=== PATIENT | female | born 1995 | race Caucasian/White ===

== ENCOUNTER 2021-03-11 22:14 | Emergency (ER) | payer OTHER, SELFPAY ==
[2021-03-11 22:31] VITALS: BP 111/70; PULSE 125; RESP 18; TEMP 36.5; O2SAT 100
[2021-03-11 23:00] LABS: Basophils Absolute Auto 0.1 K/mm3 (0.0-0.1); Basophils Percent Auto 0.8 % (0.2-1.2); Eosinophils Absolute Auto 0.3 K/mm3 (0-0.3); Eosinophils Percent Auto 3.1 % (0-4.4); Hematocrit 40.5 % (37.0-47.0); Hemoglobin 13.3 g/dL (12.0-15.0); Immature Granulocyte Absolute 0.02 K/mm3 (0.00-0.031); Immature Granulocyte Percent A 0.2 % (0-0.5); Lymphocytes Absolute Auto 3.74 K/mm3 (0.9-3.2); Lymphocytes Percent Auto 37.3 % (18.3-44.2); Mean Corpuscular HGB Conc 32.8 g/dl (32-36); Mean Corpuscular Hemoglobin 30.3 pg (26-34); Mean Corpuscular Volume 92.3 fl (80-100); Mean Platelet Volume 10.1 fl (7.4-10.4); Monocytes Absolute Auto 0.8 K/mm3 (0.1-0.6); Monocytes Percent Auto 8.4 % (2.6-8.5); Neutrophils Absolute Auto 5.1 K/mm3 (1.3-6.7); Neutrophils Percent Auto 50.2 % (45.5-73.1); Platelet Count Result 295 k/mm3 (150-375); Red Blood Count 4.39 M/mm3 (4.2-5.4); Red Cell Distribution Width 13.2 % (11.5-14.5)
[2021-03-11 23:09] LABS: Alanine Aminotransferase 25 U/L (4-35); Albumin Level 4.4 g/dL (3.5-5.1); Alkaline Phosphatase 69 U/L (38-126); Anion Gap 8 mmol/L (8-16); Aspartate Amino Transferase 31 U/L (14-36); Bilirubin,Total 0.1 mg/dL (0.2-1.3); Blood Urea Nitrogen 8 mg/dL (7-17); Calcium 9.3 mg/dL (8.4-10.2); Carbon Dioxide 25 mmol/L (22-30); Chloride 107 mmol/L (98-107); Estimated CRCL calculation 102 ml/min; Estimated Glomerular Filt Rate > 60; Glucose 84 mg/dL (65-105); Lipase 54 U/L (23-300); Potassium 3.9 mmol/L (3.4-5.0); Sodium 140 mmol/L (137-145)
[2021-03-12 00:10] VITALS: BP 121/78; PULSE 65; RESP 20; O2SAT 100
[2021-03-12 00:20] LABS: Add Urine Microscopic? YES; Appearance Urine Cloudy (Clear); Bacteria Urine Trace /hpf; Bilirubin Urine Negative (Negative); Blood Urine Negative (Negative); Color Urine Yellow (Yellow); Glucose Urine UA Negative (Negative); Ketones Urine Negative (Negative); Leukocyte Esterase Ur Negative LEU/UL (Negative); Mucus Urine Rare /lpf; Nitrate Urine Negative (Negative); Protein Urine Negative (Negative); RBC Urine 0-2 /hpf (0-2); Specific Grav Ur 1.017 (1.001-1.035); Squamous Epithelial Cell Urine Many /hpf (Few); Urobilinogen Urine Negative mg/dL (<2.0); WBC Urine 0-3 /hpf
--- NOTE | 2021-03-12 00:39 | ED.GENADULT ---
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 She denies any fever or chills. No history of sore throat. Denies any ear infections. She is worried that she could be having major infections. Also complains of dull back pain. Onset (ago): day(s) (2) Location: neck Severity: mild Relieving factors: none Exacerbating factors: none Associated symptoms: denies other symptoms Related Data Home Medications Medication Instructions Recorded Confirmed divalproex 750 mg PO HS 03/11/21 quetiapine 200 mg PO HS 03/11/21 venlafaxine 150 mg PO HS 03/11/21 Allergies Allergy/AdvReac Type Severity Reaction Status Date / Time adhesive tape Allergy Rash Verified 03/12/21 00:11 shellfish derived Allergy Rash Verified 03/12/21 00:11 Review of Systems Review of Systems: All systems reviewed & are unremarkable except as noted in HPI and below Constitutional: Constitutional: Reports no additional constitutional complaints Eyes: Eyes: Reports no additional eye complaints ENT: Reports system reviewed and no additional complaints, except as documented Cardiovascular: Cardiovascular: Reports no additional cardiovascular complaints Respiratory: Respiratory: Reports no additional respiratory complaints Gastrointestinal: Gastrointestinal: Reports no additional gastrointestinal complaints Musculoskeletal: Musculoskeletal: Reports as per [facility] Social History Social History Gender identity (if verbalized by the patient): Female Exam Narrative: Exam Narrative: GENERAL: Well-appearing, well-nourished, and in no acute distress. HEAD: Normocephalic, atraumatic. EYES: PERRLA and EOMI. ENT: Nares clear, no rhinorrhea or epistaxis. Mucous membranes moist. NECK: Supple. Has a single solitary lymph node at the angle of the right jaw. Nontender skin over this lymph node is normal CHEST: Clear to auscultation. No respiratory distress. HEART: Regular rate and rhythm. No murmur heard. Normal peripheral pulses. ABDOMEN: Soft, nontender, nondistended, normal active bowel sounds. EXTREMITIES: Normal range of motion. No edema. SKIN: Warm, dry, no rash. NEURO: No focal deficits. Alert and oriented x3. PSYCH: Normal mood and affect. Course Course Emergency Course: Inform patient about her lab work. Advised her no antibiotic is needed just watch and see at this time take Tylenol ibuprofen for pain. Vital Signs Vital signs: Vital Signs Temperature 36.5 C 03/11/21 22:31 Pulse Rate 125 H 03/11/21 22:31 Respiratory Rate 18 03/11/21 22:31 Blood Pressure 111/70 03/11/21 22:31 Pulse Oximetry 100 03/11/21 22:31 Temperature 36.5 C 03/11/21 22:31 Pulse Rate 65 03/12/21 00:10 Respiratory Rate 20 03/12/21 00:10 Blood Pressure 121/78 03/12/21 00:10 Pulse Oximetry 100 03/12/21 00:10 Medical Decision Making Vital Signs Vital Signs: Vital Signs Temperature 36.5 C 03/11/21 22:31 Pulse Rate 125 H 03/11/21 22:31 Respiratory Rate 18 03/11/21 22:31 Blood Pressure 111/70 03/11/21 22:31 Pulse Oximetry 100 03/11/21 22:31 Temperature 36.5 C 03/11/21 22:31 Pulse Rate 65 03/12/21 00:10 Respiratory Rate 20 03/12/21 00:10 Blood Pressure 121/78 03/12/21 00:10 Pulse Oximetry 100 03/12/21 00:10 Lab Data Result diagrams: 03/11/21 22:53 03/11/21 22:53 Labs: Lab Results 03/11/21 03/11/21 03/11/21 Range/Units 22:53 22:53 23:46 WBC 10.0 (4.5-10.0) K/mm3 RBC 4.39 (4.2-5.4) M/mm3 Hgb 13.3 (12.0-15.0) g/dL Hct 40.5
== END 2021-03-12 00:51 | disposition home or self-care (01) ==
PROVIDERS: Emergency Medicine; Emergency Provider Family Medicine; PCP Obstetrics & Gynecology
DX: R59.0 Localized enlarged lymph nodes (principal)
CPT/HCPCS: 36415; 80053; 81001; 81025; 83690; 85025; 99283

== ENCOUNTER 2021-06-28 18:34 | Emergency (ER) | payer OTHER, SELFPAY ==
--- NOTE | ~2021-06-28 | XR_ITS ---
EXAMINATION: XR ankle LT min 3V DATE: 06/28/2021 18:56 INDICATION: Medial sided left ankle pain post fall TECHNIQUE: Anteroposterior, oblique, mortise, and lateral views of the left ankle were obtained. COMPARISON: None. FINDINGS: Alignment is normal. No fracture. Joint spaces are well maintained. No ankle joint effusion. The so ft tissues are unremarkable. IMPRESSION: 1. Negative left ankle radiographs. Reviewed, dictated and finalized at location A.
[2021-06-28 18:37] VITALS: BP 163/88; PULSE 108; RESP 18; TEMP 36.3; O2SAT 99
[2021-06-28 19:09] VITALS: BP 160/80; PULSE 98; RESP 18; O2SAT 99
--- NOTE | 2021-06-28 20:21 | ED.GENADULT ---
HPI - General Adult General Chief complaint: Extremity Injury, Lower <Staci Arevalo PA-C - Last Filed: 06/28/21 20:46> Stated complaint: left ankle pain <MIRTHA Carrion Last Filed: 06/28/21 20:46> Time Seen by Provider: 06/28/21 18:46 <Staci Arevalo PA-C - Last Filed: 06/28/21 20:46> Source: patient <MIRTHA Carrion Last Filed: 06/28/21 20:46> Mode of arrival: ambulatory <MIRTHA Carrion Last Filed: 06/28/21 20:46> Limitations: no limitations <MIRTHA Carrion Last Filed: 06/28/21 20:46> History of Present Illness HPI narrative: Patient presents with chief complaint of pain to the left ankle with walking and standing over the next month. Patient states this started when she inverted her ankle 28 days ago. Patient states that for 1 week she wore Heath wrap. She states she has sprained the ankle in the past but it is normally resolved within 2 weeks. Patient has tried anything else to alleviate her symptoms. Patient denies any other injuries. <MIRTHA Carrion Last Filed: 06/28/21 20:46> Related Data Home medications: Home Medications Medication Instructions Recorded Confirmed divalproex 750 mg PO HS 03/11/21 quetiapine 200 mg PO HS 03/11/21 venlafaxine 150 mg PO HS 03/11/21 <Staci Arevalo PA-C - Last Filed: 06/28/21 20:46> Allergies/adverse reactions: Allergies Allergy/AdvReac Type Severity Reaction Status Date / Time adhesive tape Allergy Rash Verified 06/28/21 19:08 shellfish derived Allergy Rash Verified 06/28/21 19:08 <MIRTHA Carrion Last Filed: 06/28/21 20:46> Review of Systems Review of Systems: CONSTITUTIONAL: Denies fever, chills, or sweats. EYES: Denies visual changes, redness, or discharge. ENT: Denies rhinorrhea, congestion, sore throat, or otalgia. CARDIOVASCULAR: Denies chest pain, palpitations, or edema. RESPIRATORY: Denies cough or dyspnea. GASTROINTESTINAL: Denies abdominal pain, nausea, vomiting, or diarrhea. GENITOURINARY: Denies dysuria or hematuria. SKIN: Denies rash or itching. MUSCULOSKELETAL: Reports left ankle pain denies back pain or myalgia. NEUROLOGIC: Denies headache, numbness, dizziness, or weakness. PSYCHIATRIC: Denies anxiety or depression. <Staci Arevalo PA-C - Last Filed: 06/28/21 20:46> PMFSH Social History Social History: Social History Gender identity (if verbalized by the patient): Female <MIRTHA Carrion Last Filed: 06/28/21 20:46> Exam Narrative: GENERAL: Well-appearing, well-nourished, and in no acute distress. HEAD: Normocephalic, atraumatic. EYES: PERRLA and EOMI. CHEST: No respiratory distress. No tachypnea. EXTREMITIES: There is there is discomfort with inversion plantar and dorsiflexion. Patient reports discomfort to the medial malleolus, swelling erythema not appreciated. SKIN: Warm, dry, no rash. NEURO: No focal deficits. Alert and oriented x3. PSYCH: Normal mood and affect. <MIRTHA Carrion Last Filed: 06/28/21 20:46> Course Vital Signs Vital signs: Vital Signs Temperature 36.3 C L 06/28/21 18:37 Pulse Rate 108 H 06/28/21 18:37 Respiratory Rate 18 06/28/21 18:37 Blood Pressure 163/88 H 06/28/21 18:37 Pulse Oximetry 99 06/28/21 18:37 Temperature 36.3 C L 06/28/21 18:37 Pulse Rate 98 06/28/21 19:09 Respiratory Rate 18 06/28/21 19:09 Blood Pressure 160/80 H 06/28/21 19:09 Pulse Oximetry 99 06/28/21 19:09 <MIRTHA Carrion Last Filed: 06/28/21 20:46> Medical Decision Making MDM Narrative Medical decision making narrative: Discussed with patient that there is no fracture noted on her x-ray. Discussed with patient sprain and strain protocol RICE instructions patient does not have a primary care that she will be referred to primary care or orthopedics for further evaluation and management if her symptoms persist. Patient
== END 2021-06-28 20:42 | disposition home or self-care (01) ==
PROVIDERS: Emergency Provider Emergency Medicine
DX: S93.402A Sprain of unspecified ligament of left ankle, initial encounter (principal); S96.912A Strain of unspecified muscle and tendon at ankle and foot level, left foot, initial encounter; X50.9XXA Other and unspecified overexertion or strenuous movements or postures, initial encounter
CPT/HCPCS: 73610; 99283